=== PATIENT | male | born 1995 | race Caucasian/White ===

== ENCOUNTER → 2023-01-08 10:31 | Outpatient (BNVA) | payer OTHER, SELFPAY | PROVIDERS: Visit Provider Physician Assistant | DX: S50.871A Other superficial bite of right forearm, initial encounter (principal); S60.371A Other superficial bite of right thumb, initial encounter; W54.0XXA Bitten by dog, initial encounter; Z20.3 Contact with and (suspected) exposure to rabies | CPT/HCPCS: 90675; 99203 ==

== ENCOUNTER → 2023-01-12 09:55 | Outpatient (BNVA) | payer OTHER, SELFPAY | DX: S50.871A Other superficial bite of right forearm, initial encounter (principal); W54.0XXA Bitten by dog, initial encounter; Z20.3 Contact with and (suspected) exposure to rabies | CPT/HCPCS: 90675; 99211 ==

== ENCOUNTER → 2023-01-19 11:21 | Outpatient (BNVA) | payer OTHER, SELFPAY | DX: S50.871D Other superficial bite of right forearm, subsequent encounter (principal); S60.37 Other superficial bite of thumb; W54.0XXD Bitten by dog, subsequent encounter; Z20.3 Contact with and (suspected) exposure to rabies | CPT/HCPCS: 90675; 99211 ==